=== PATIENT | female | born 1970 | race Caucasian/White ===

== ENCOUNTER 2020-04-16 13:05 | Emergency (ER) | payer BC, SELFPAY ==
[2020-04-16 13:06] VITALS: BP 145/90; PULSE 90; RESP 14; TEMP 36.7; O2SAT 100; BMI 29.9
--- NOTE | 2020-04-16 13:11 | EKG12_ITS ---
Test Reason : CP Blood Pressure : / mmHG Vent. Rate : 107 BPM Atrial Rate : 107 BPM P-R Int : 120 ms QRS Dur : 082 ms QT Int : 348 ms P-R-T Axes : 069 067 047 degrees QTc Int : 464 ms Sinus tachycardia Otherwise normal ECG Confirmed by RONIT SQUIRES, DIA ([id number]), research editor JANETH WALDEN ([id number]) on 04/18/2020 8:31:22 AM Referred By: Confirmed By:DIA COTTRELL MD
[2020-04-16 13:18] VITALS: PULSE 115; RESP 22; O2SAT 98
--- NOTE | 2020-04-16 13:24 | NURSING ---
NO OLD EKGS
[2020-04-16 13:52] LABS: Absolute Lymphocyte Count 1.71 X10^3/uL (0.83-4.51); Absolute Neutrophil Count 12.3 X10^3/uL (2.0-7.7); Basophil# 0.05 X10^3/uL; Basophil% 0.3 % (0-1); Eosinophil# 0.02 X10^3/uL; Eosinophils% 0.1 % (0-5); Hematocrit 40.7 % (37-47); Hemoglobin 13.9 g/dL (12.0-15.0); Lymphocyte # 1.71 X10^3/ul (4.0); Lymphocyte % 11.5 % (19-41); Mean Corp Hgb Conc 34.2 g/dL (32-36); Mean Corpuscular Hgb 30.5 pg (27.0-32.0); Mean Corpuscular Volume 89.3 fL (81-99); Monocyte% 4.7 % (0-10); NRBC Flagged by Analyzer 0 % (0-5); Neutrophil # 12.27 X10^3/uL (2.7-7.7); Neutrophil % 82.9 % (47-70); Platelet Count 349 K/mm3 (150-450); RBC Distribution Width CV 12.9 % (11.6-14.6); RBC Distribution Width SD 41.6 fl (35.1-43.9); Red Blood Count 4.56 M/mm3 (4.2-5.4); White Blood Count 14.8 K/mm3 (4.4-11.0)
--- NOTE | 2020-04-16 13:55 | RAD_ITS ---
STUDY: X-RAY CHEST REASON FOR EXAM: Female, 49 years old. MID STERNAL CHEST PAIN SINCE YESTERDAY. HX OF HTN, HYPERLIPIDEMIA TECHNIQUE: Single AP portable view of the chest. COMPARISON: None. FINDINGS: EKG electrodes are seen. Mild elevation of the right hemidiaphragm. There is no demonstrated pleural abnormality. Normal size heart. Normal mediastinum and vilma. Normal visualized pulmonary arteries. Normal visualized aortic arch and descending thoracic aorta. Normal visualized thoracic spine. Normal visualized ribs, clavicles, and shoulders. There is no demonstrated abnormality of the visualized soft tissue structures of the upper abdomen. RAD/Chest 1 View (Portable) IMPRESSION: Mild elevation of the right hemidiaphragm. The lungs are clear. Electronically Signed: Ricco Black, at 14:26 EDT , Service support ,
[2020-04-16 14:13] LABS: AST(SGOT) 286 U/L (15-37); Alanine Aminotransfer ALT/SGPT 256 U/L (13-56); Albumin, Serum 3.5 g/dL (3.2-5.0); Alkaline Phosphatase 67 U/L (45-117); Anion Gap 7 (5-15); BUN 13 mg/dL (7-18); BUN/Creat Ratio 16.9 RATIO (10-20); Bilirubin, Direct 2.04 mg/dL (0.00-0.30); Chloride 103 mmol/L (98-107); Creatinine, Serum 0.77 mg/dL (0.55-1.02); EST Glomerular Filtration Rate 85 mL/min (>60); Est Glom Filt Rate - Afr Amer 103 mL/min (>60); Estimated Creatinine Clearance 91.68 ml/min; Globulin 4.3 g/dL (2.2-4.2); Glucose 98 mg/dL (74-106); Lipase 137 U/L (73-393); Potassium 3.4 mmol/L (3.5-5.1); Protein, Total 7.8 g/dL (6.4-8.2); Sodium Level 137 mmol/L (136-145)
[2020-04-16 14:18] LABS: D-Dimer Quantitative (DVT/PE) 0.91 FEU/ug/m (0.27-0.49)
--- NOTE | 2020-04-16 14:18 | US_ITS ---
STUDY: ABDOMINAL ULTRASOUND - RIGHT UPPER QUADRANT REASON FOR VISIT: Female, 49 years old epigastric pain TECHNIQUE: Ultrasound evaluation of the right upper quadrant was performed with real-time and static lucia-scale imaging. TECHNICAL QUALITY: Adequate. COMPARISON: None. FINDINGS: Liver: The liver measures 15.1 cm. There is increased echogenicity consistent with a mild degree of fatty infiltration. The bile ducts are within normal limits. There is hepatic color flow. The direction of portal flow is hepatopetal. There is no demonstrated mass lesion. Gallbladder: Normal distended gallbladder. The gallbladder wall measures 2.0 mm. There is a negative sonographic Mccurdy''s sign. There is no pericholecystic fluid. There are multiple echogenic structures within the gallbladder, consistent with multiple gallstones. Common Bile Duct (C.B.D.): The common bile duct measures 6.0 mm. Pancreas: Normal size of the head, body and tail of the pancreas. There is normal echogenicity of the pancreas. There is no demonstrated pancreatic mass or cyst. Right Kidney: Normal size of the right kidney. The right kidney measures 10.1 cm x 4.9 cm x 4.6 cm. Normal renal cortex. The right cortex measures 1.9 cm. There is no demonstrated renal mass or cyst. There is no right hydronephrosis. US/Gallbladder IMPRESSION: Multiple gallstones. Mild degree of fatty infiltration of the liver. Electronically Signed: Ricco Black, at 15:24 EDT , Service support ,
--- NOTE | 2020-04-16 14:18 | CT_ITS ---
STUDY: CTA CHEST REASON FOR EXAM: Female, 49 years old. MID STERNAL CP SINCE YESTERDAY, HTN, HLD RADIATION DOSAGE (If Supplied By Facility): CTDIvol = ( 8.24 ) mGy, DLP = ( 202.99 ) mGycm TECHNIQUE: The examination was performed with the intravenous administration of IV 100mL Isovue-[id number]. Post-processing of the angiographic images was performed, with multiplanar reformation and 3D reconstruction. Individualized dose optimization techniques were used for this CT. COMPARISON: None. FINDINGS: Normal enhancement of the main pulmonary artery and right and left pulmonary arteries. Normal enhancement of the bilateral peripheral pulmonary arteries. There is no demonstrated pulmonary embolism. Normal thoracic aorta and visualized great vessels. There is no demonstrated aortic dissection. Normal heart and pericardium. Normal mediastinum. Normal hilar regions. Normal visualized trachea and bronchi. The lungs are well expanded. Linear density in the medial aspect of the right lung apex suggestive of minimal linear scar. Mild increased markings at the lung bases suggestive of either linear atelectasis and/or linear scarring more prominent at the right lung base. Normal pleura. Normal chest wall structures. There are degenerative changes of thoracic spine. Small hiatal hernia. CT/CTA Chest W/WO Contrast IMPRESSION: Minimal increased markings at the lung bases more prominent at the right lung base suggestive of scarring. No acute abnormality is seen. No evidence of pulmonary embolism. Electronically Signed: Ricco Black, at 15:27 EDT , Service support ,
--- NOTE | 2020-04-16 14:41 | ED.VIS.GEN ---
History of Present Illness Chief Complaint: Chest Pain Informant: Patient Narrative: Patient presents the emergency department with a burning epigastric lower chest pain. Symptoms began last night after she made homemade taco pizza with Chipotle sauce. She states that it kept her up most of the night. She tried some Mylanta. It was not going away so she wanted to be evaluated. She called her doctor's office advised him to come to emergency. She states that she is otherwise a fairly healthy individual. Past Medical History - Allergies and Home Meds Allergies/Adverse Reactions: Allergies No Known Allergies Allergy (Verified 04/16/20 13:05) Primary Care Physician: Won Braden MD [Primary Care Provider] - Prior records reviewed: Yes Surgical History: noncontributory Lives: With Family Smoking Status: Never smoker Drugs: None Review of Systems General: Denies: Chills, Fever, Sweats Eyes: Denies: Visual changes - bilaterally, Diplopia ENT: Denies: Rhinorrhea, Sore throat Cardiovascular: Denies: Chest pain, Palpitations Respiratory: Denies: Dyspnea, Cough, Dyspnea on exertion Gastrointestinal: Reports: Abdominal pain. Denies: Nausea, Vomiting, Diarrhea, Melena, Hematochezia Genitourinary: Denies: Dysuria, Hematuria, Frequency Musculoskeletal: Denies: Back pain, Extremity Pain Skin: Denies: Rash, Wounds Neurological: Denies: Headache, Weakness, Numbness Physical Exam Vital Signs/Narrative: Vital Signs Temp Pulse Resp BP Pulse Ox 04/16/20 13:18 115 H 22 H 98 04/16/20 13:06 98.0 F 90 14 145/90 H 100 Inital Vital Signs reviewed: Yes General: Well nourished, Well developed, No Acute Distress Head: Normocephalic, Atraumatic Eyes: Perrl, EOMI ENT: Moist mucous membranes, No rhinorrhea Neck: Supple, Nontender Cardiovascular: Regular rate, Regular rhythm, No murmurs Respiratory: No distress, CTA bilaterally, Chest nontender Abdomen: Soft, Nondistended, Normal bowel sounds, Tender - Mild epigastric right upper quadrant tenderness. Negative for: Guarding, Rebound tenderness Back: Nontender, Normal Inspection Extremities: Nontender, No edema Skin: Normal color, No rash Neurological: Alert, Oriented x3, Cranial nerves II-XII grossly intact, Normal Strength, Normal Sensation Psychological: Normal affect, Normal Mood Diagnostic/Tx/Re-eval Laboratory Last Values WBC 14.8 K/mm3 (4.4-11.0) H 04/16/20 13:45 RBC 4.56 M/mm3 (4.2-5.4) 04/16/20 13:45 Hgb 13.9 g/dL (12.0-15.0) 04/16/20 13:45 Hct 40.7 % (37-47) 04/16/20 13:45 MCV 89.3 fL (81-99) 04/16/20 13:45 MCH 30.5 pg (27.0-32.0) 04/16/20 13:45 MCHC 34.2 g/dL (32-36) 04/16/20 13:45 RDW Std Deviation 41.6 fl (35.1-43.9) 04/16/20 13:45 RDW Coeff of Pretty 12.9 % (11.6-14.6) 04/16/20 13:45 Plt Count 349 K/mm3 (150-450) 04/16/20 13:45 MPV 9.0 fl (6.2-12.0) 04/16/20 13:45 Immature Gran % (Auto) 0.500 % (0.0-0.9) 04/16/20 13:45 Neut % (Auto) 82.9 % (47-70) H 04/16/20 13:45 Lymph % (Auto) 11.5 % (19-41) L 04/16/20 13:45 Meriwether % (Auto) 4.7 % (0-10) 04/16/20 13:45 Eos % (Auto) 0.1 % (0-5) 04/16/20 13:45 Baso % (Auto) 0.3 % (0-1) 04/16/20 13:45 Absolute Neuts (auto) 12.3 X10^3/uL (2.0-7.7) H 04/16/20 13:45 Absolute Lymphs (auto) 1.71 X10^3/uL (0.83-4.51) 04/16/20 13:45 Nucleated RBC % 0 % (0-5) 04/16/20 13:45 D-Dimer Quant (PE/DVT) 0.91 FEU/ug/m (0.27-0.49) H* 04/16/20 13:45 Sodium 137 mmol/L (136-145) 04/16/20 13:45 Potassium 3.4 mmol/L (3.5-5.1) L 04/16/20 13:45 Chloride 103 mmol/L (98-107) 04/16/20 13:45 Carbon Dioxide 27.0 mmol/L (21.0-32.0) 04/16/20 13:45 Anion Gap 7 (5-15) 04/16/20 13:45 BUN 13 mg/dL (7-18) 04/16/20 13:45 Creatinine 0.77 mg/dL (0.55-1.02) 04/16/20 13:45 Estim Creat Clear Calc 91.68 ml/min 04/16/20 13:45 Est GFR (MDRD) Af Amer 103 mL/min (>60) 04/16/20 13:45 Est GFR (MDRD) Non-Af 85 mL/min (>60) 04/16/20 13:45 BUN/Creatinine Ratio 16.9 RATIO (10-20) 04/16/20 13:45 Glucose 98 mg/dL (74-106) 04/16/20 13:45 Calcium 10.0 mg/dL (8.5-10.1) 04/16/20 13:45 Total Bilirubin 2.60 mg/dL (0.20-1.00) H 04/16/20 13:45 Direct Bilirubin 2.04 mg/dL (0.00-0.30) H 04/16/20 13:45 AST 286 U/L (15-37) H 04/16/20 13:45 ALT 256 U/L (13-56) H 04/16/20 13:45 Alkaline Phosphatase 67 U/L (45-117) 04/16/20 13:45 Troponin I < 0.015 ng/mL (<0.045) 04/16/20 13:45 Total Protein 7.8 g/dL (6.4-8.2) 04/16/20 13:45 Albumin 3.5 g/dL (3.2-5.0) 04/16/20 13:45 Globulin 4.3 g/dL (2.2-4.2) H 04/16/20 13:45 Lipase 137 U/L (73-393) 04/16/20 13:45 - EKG Initial EKG Interpretation: Sinus Tachycardia - EKG is a sinus tachycardia at a rate of 107 without ectopy or concerning features of ACS - Medical Decision Making EKG showed a sinus tachycardia at a rate of 107. Basic labs showed a leukocytosis. D-dimer is elevated 0.9. Her liver enzymes and total bilirubin are also elevated. Because of the patient's location of her pain gallbladder ultrasound was ordered because of her d-dimer elevation a CTA of the chest was also ordered. ED Disposition - Plan for ED Patient: Disposition: [facility] Diagnosis: Acute cholecystitis, Choledocholithiasis Referrals: Won Braden MD [Primary Care Provider] -
[2020-04-16 16:18] VITALS: BP 140/77; PULSE 117; RESP 16; TEMP 37.4; O2SAT 95
--- NOTE | 2020-04-16 16:41 | NURSING ---
ACCEPTED AT [facility].
[2020-04-16 17:17] VITALS: BP 132/87; PULSE 115; RESP 18; O2SAT 95
== END 2020-04-16 17:26 | disposition short-term general hospital (02) ==
PROVIDERS: Emergency Provider Emergency Medicine; PCP Family Medicine
DX: K80.42 Calculus of bile duct with acute cholecystitis without obstruction (principal)
CPT/HCPCS: 71045; 71275; 76705; 80048; 80076; 83690; 84484; 85025; 85379; 93005; 96365; 99285; J7050; Q9967; A4216